=== PATIENT | female | born 1995 | race Caucasian/White ===

== ENCOUNTER 2017-12-05 17:33 | Emergency (ER) | payer OTHER ==
[~2017-12-05] VITALS: Ht 170.2 cm; Wt 89.0 kg
[2017-12-05 17:44] VITALS: TEMP 36.8; Ht 170.2 cm; Wt 89.0 kg
[2017-12-05] MEDS ORDERED: LORA-741 PO (18:45)
[2017-12-05] MEDS ORDERED: ESCI1TAB10 PO (18:45)
[2017-12-05] MEDS ORDERED: BCPILLS PO (18:45)
[2017-12-05 19:18] LABS: HEMATOCRIT 35.6 % (37-47); MEAN CELL VOLUME 85.8 fL (80-100); MEAN CORPUSCULAR HEMOGLOBIN 28.9 pg (25-34); MEAN CORPUSCULAR HGB CONC 33.7 g/dl (32-36); MEAN PLATELET VOLUME 10.1 fL (7.4-10.4); PLATELET COUNT 152 K/uL (130-400); RED CELL DISTRIBUTION WIDTH CV 13.2 % (11.5-14.5); RED CELL DISTRIBUTION WIDTH SD 41.5 fL (36.4-46.3); WHITE BLOOD COUNT 6.85 K/uL (4.8-10.8)
[2017-12-05 19:29] LABS: PTT PATIENT 22.9 SECONDS (21.0-31.0)
[2017-12-05 19:37] LABS: ALBUMIN 3.7 gm/dl (3.4-5.0); ALKALINE PHOSPHATASE 89 U/L (45-117); ALT/SGPT 40 U/L (12-78); AST/SGOT 36 U/L (15-37); BLOOD UREA NITROGEN 13 mg/dl (7-18); CALCIUM 8.7 mg/dl (8.5-10.1); CARBON DIOXIDE 22 mmol/L (21-32); CKMB < 1.0 ng/ml (0.5-3.6); CREATININE 0.77 mg/dl (0.60-1.20); GLUCOSE 74 mg/dl (70-99); POTASSIUM 3.4 mmol/L (3.5-5.1); SODIUM 141 mmol/L (136-145); TOTAL PROTEIN 7.3 gm/dl (6.4-8.2)
[2017-12-05] MEDS ORDERED: OPTIRAY 320 IV PRN (20:00)
--- NOTE | 2017-12-05 21:00 | DIAGNOSTIC IMAGING REPORT ---
CT ANGIOGRAPHY OF THE CHEST, PULMONARY EMBOLUS PROTOCOL CLINICAL HISTORY: Chest pain. COMPARISON STUDY: No previous studies for comparison. TECHNIQUE: Following IV administration of 91 mL of Optiray-320, helical axial images of the chest were obtained utilizing the pulmonary embolus protocol. Maximal intensity projections and sagittal and coronal reformats were viewed on an independent 3D workstation. IV contrast was administered without complication. A dose lowering technique was utilized adhering to the principles of ALARA. CT DOSE: 392.44 mGy.cm FINDINGS: No pulmonary emboli are identified. There is no evidence for thoracic aortic dissection. The size of the heart is normal. There is no pericardial effusion. No enlarged axillary, mediastinal or hilar lymph nodes are present. The central airways are patent. There is no consolidation to suggest pneumonia. Minimal subpleural opacities reflect atelectasis. No pneumothorax or pleural effusion is noted. Bony thorax is unremarkable. Spleen is partially imaged but likely mildly enlarged. IMPRESSION: 1. No pulmonary emboli identified. 2. No acute intrathoracic findings. 3. Suspected mild splenomegaly, partially imaged on this exam. Electronically signed by: Brendon Bucio M.D. 12/05/2017 8:59 PM Dictated Date/Time: 12/05/2017 8:53 PM
[2017-12-05] MEDS ORDERED: PRED20TA PO (21:44)
[2017-12-05] MEDS ORDERED: DEXAMETHASONE **PF** INJ 10 MG/ML VIAL IV ONE (21:45)
--- NOTE | 2017-12-05 21:46 | EMERGENCY ROOM VISIT NOTE ---
History First contact with patient: 17:59 Chief Complaint: CHEST PAIN Stated Complaint: RASH CHEST PAIN Nursing Triage Summary: Patient complains of rash and chest pain for a few days. History of Present Illness Patient is a generally healthy 22-year-old female who is referred to the emergency department from [facility] for evaluation of chest pain. Patient reports that she actually went to [facility] because she had developed a generalized hives to yesterday. Patient notes that she traveled to [facility] on a mission trip 10/31 through 11/16. While in [facility], she sustained some type of insect bite on her right thigh that had a slight bull's-eye appearance, which resolved shortly on its own without any pain or itching. Patient notes that when she returned from the trip she was feeling poorly, with cough and upper respiratory symptoms. She was treated by an urgent care facility at her home in [place] for bronchitis, using steroids and an unknown antibiotic. Her symptoms resolved, and she was feeling better, at which point she developed a "bad headache" with associated chills, sweats, photophobia and a sensation of being off balance. The patient does not have a diagnosis of migraine disorder, nor does she ever have headaches similar to this. She used [id number] Excedrin, and the headache went away after about 5 days. Yesterday, the patient states that she broke out in a rash. Her symptoms started yesterday afternoon. She noted lesions on her torso and her hands, and states that they were red, raised and very itchy. She has photographs off the rash that appear consistent with urticaria. She took Zyrtec and Benadryl, when she woke up this morning the hives on her torso had redness resolved, but now had lesions on her thighs. The hives are improving. Patient states that she went to [facility] because of the rash. While at [facility] upon further questioning, she admitted to a dry cough and left upper chest pain radiating to the left scapula and stiffness in the shoulder. [facility] did an EKG and a chest x-ray and referred her to the emergency department for further care and evaluation. Patient is on oral contraceptives. She did have prolonged travel earlier this summer to [facility]. She also does report that her mom has a history of "blood clots" she is not sure of the specific diagnosis or any type of underlying pathology. The patient does have some discomfort with taking a deep breath but she does not feel short of breath. She denies any calf or leg pain or swelling. With regards to the hives, she is unaware of any new exposures, including foods, personal grooming items, clothing or linens. Review of Systems Review of systems as per HPI. All other systems reviewed were negative. 10 systems reviewed. Past Medical/Surgical History Medical Problems: (1) Anxiety Surgical Problems: (1) History of tonsillectomy (2) History of wisdom tooth extraction Electronic medical records are reviewed and summarized as above/below. See Problem List. Social History Smoking Status: Never Smoker Alcohol Use: none Housing Status: lives with roommate Occupation Status: student Current/Historical Medications Scheduled Control Pills ( Control Pills), 1 TAB PO DAILY Escitalopram Oxalate (Lexapro), 20 MG PO DAILY Prednisone (Prednisone), 0 PO DAILY Scheduled PRN Lorazepam (Ativan), 0.5 MG PO Q6H PRN for Anxiety Physical Exam Vital Signs Date Time Temp Pulse Resp B/P (MAP) Pulse Ox O2 Delivery O2 Flow Rate FiO2 12/05/17 22:07 81 16 132/74 98 12/05/17 20:57 76 20 120/78 100 Room Air 12/05/17 20:11 80 16 125/64 98 Room Air 12/05/17 17:44 36.8 79 18 146/53 99 Room Air Physical Exam CONSTITUTIONAL: Patient is a well-appearing 22-year-old female who is awake and alert and in no acute distress. EYES: Pupils equal, round, reactive to light and accommodation. EOMs intact without nystagmus. Sclera are anicteric. ENT: Tympanic membranes intact, with normal landmarks. External canals are clear. Oral and nasopharynx are clear. Mucous membranes are moist, no lesions , tongue and gums appear normal. NECK: No bruits auscultated. Supple without lymphadenopathy. No thyromegaly. No meningeal signs. Full active range of motion without discomfort. CARDIOVASCULAR: Regular rate and rhythm, with normal S1 and S2, no murmur or gallop or rub is heard. No carotid bruits auscultated. No JVD. Peripheral pulses easy to palpable. RESPIRATORY: Breath sounds equal and clear to auscultation without wheezes, rales, or rhonchi heard. Full and equal chest expansion without accessory muscle use or retractions. MUSCULOSKELETAL: Full range of motion of extremities x 4 with good strength. No cyanosis, edema, joint tenderness or swelling. No deformity. Calves are soft and nontender bilaterally. No palpable cords. INTEGUMENTARY: Faint erythema noted in the dorsum of the hands over the MCP joints, and on the anterior thighs bilaterally. NEUROLOGICAL: Alert, oriented, and cooperative. Cranial nerves, sensation and strength grossly intact. Pupils round, equal, and react to light, EOMs are full. LYMPH: No lymphadenopathy. Medical Decision & Procedures ER Provider Diagnostic Interpretation: CT ANGIOGRAPHY OF THE CHEST, PULMONARY EMBOLUS PROTOCOL CLINICAL HISTORY: Chest pain. COMPARISON STUDY: No previous studies for comparison. TECHNIQUE: Following IV administration of 91 mL of Optiray-320, helical axial images of the chest were obtained utilizing the pulmonary embolus protocol. Maximal intensity projections and sagittal and coronal reformats were viewed on an independent 3D workstation. IV contrast was administered without complication. A dose lowering technique was utilized adhering to the principles of ALARA. CT DOSE: 392.44 mGy.cm FINDINGS: No pulmonary emboli are identified. There is no evidence for thoracic aortic dissection. The size of the heart is normal. There is no pericardial effusion. No enlarged axillary, mediastinal or hilar lymph nodes are present. The central airways are patent. There is no consolidation to suggest pneumonia. Minimal subpleural opacities reflect atelectasis. No pneumothorax or pleural effusion is noted. Bony thorax is unremarkable. Spleen is partially imaged but likely mildly enlarged. IMPRESSION: 1. No pulmonary emboli identified. 2. No acute intrathoracic findings. 3. Suspected mild splenomegaly, partially imaged on this exam. Laboratory Results 12/05/17 18:59 Red Blood Count 4.15, Mean Corpuscular Volume 85.8, Mean Corpuscular Hemoglobin 28.9, Mean Corpuscular Hemoglobin Concent 33.7, Mean Platelet Volume 10.1 12/05/17 18:59 Test 12/05/17 18:59 12/05/17 19:10 White Blood Count 6.85 K/uL (4.8-10.8) Red Blood Count 4.15 M/uL (4.2-5.4) Hemoglobin 12.0 g/dL (12.0-16.0) Hematocrit 35.6 % (37-47) Mean Corpuscular Volume 85.8 fL (80-100) Mean Corpuscular Hemoglobin 28.9 pg (25-34) Mean Corpuscular Hemoglobin Concent 33.7 g/dl (32-36) Platelet Count 152 K/uL (130-400) Mean Platelet Volume 10.1 fL (7.4-10.4) RDW Standard Deviation 41.5 fL (36.4-46.3) RDW Coefficient of Variation 13.2 % (11.5-14.5) Neutrophils % (Manual) 54.7 % Lymphocytes % (Manual) 38.3 % Monocytes % (Manual) 6.1 % Eosinophils % (Manual) 0.9 % Neutrophils # (Manual) 3.75 K/uL (1.4-6.5) Total Absolute Neutrophils 3.75 K/uL (1.4-6.5) Lymphocytes # (Manual) 2.62 K/uL (1.2-3.4) Total Absolute Lymphocytes 2.62 K/uL (1.2-3.4) Monocytes # (Manual) 0.42 K/uL (0.11-0.59) Eosinophils # (Manual) 0.06 K/uL (0-0.5) Red Blood Cell Morphology Unremarkable Erythrocyte Sedimentation Rate 2 mm/hr (0-21) Prothrombin Time 10.8 SECONDS (9.0-12.0) Prothromb Time International Ratio 1.0 (0.9-1.1) Activated Partial Thromboplast Time 22.9 SECONDS (21.0-31.0) Partial Thromboplastin Ratio 0.9 Anion Gap 10.0 mmol/L (3-11) Est Creatinine Clear Calc Drug Dose 133.5 ml/min Estimated GFR () 128.8 Estimated GFR (Non- 111.1 BUN/Creatinine Ratio 17.1 (10-20) Calcium Level 8.7 mg/dl (8.5-10.1) Total Bilirubin 0.5 mg/dl (0.2-1) Aspartate Amino Transf (AST/SGOT) 36 U/L (15-37) Alanine Aminotransferase (ALT/SGPT) 40 U/L (12-78) Alkaline Phosphatase 89 U/L (45-117) Total Creatine Kinase 74 U/L (26-192) Creatine Kinase MB < 1.0 ng/ml (0.5-3.6) Creatine Kinase MB Ratio (0-3.0) Troponin I < 0.015 ng/ml (0-0.045) Total Protein 7.3 gm/dl (6.4-8.2) Albumin 3.7 gm/dl (3.4-5.0) Globulin 3.6 gm/dl (2.5-4.0) Albumin/Globulin Ratio 1.0 (0.9-2) Lyme Disease IgG Antibody NEG (NEG) Lyme Disease IgM Antibody NEG (NEG) Urine Test NEG (NEG) Medications Administered Medications (Trade) Dose Ordered Sig/Gomez Route Start Time Stop Time Status Last Admin Dose Admin Dexamethasone Sodium Phosphate (Dexamethasone Inj Pf) 10 mg NOW ONCE IV 12/05/17 21:45 12/05/17 21:46 DC 12/05/17 21:45 10 MG ECG Per My Interpretation Indication: chest pain Rate (beats per minute): 69 Rhythm: normal sinus Findings: no acute ischemic change, no ectopy Comparison ECG Date: no prior available ED Course The patient was seen and evaluated as above. Her primary concern was the episode of hives that she developed yesterday without clear source. At the present time, she has some faint erythema where the hives had been most recently , otherwise is asymptomatic from a dermatologic standpoint. She was referred to the emergency department from [facility] because she was experiencing some chest pain. She has also had some recent travel is on an oral contraceptive and there is a family history of DVT. There is also a concern regarding possible Lyme due to a bite on her leg. The patient's paperwork from [facility] [facility] was reviewed including her EKG. She was slightly tachycardic upon initial presentation at [facility], heart rate is normal here. Chest x-ray with radiology interpretation was unremarkable. ED workup was discussed with the patient. I did discuss my concern for possible pulmonary embolus with the patient, and she was agreeable to undergo proposed workup. IV lock was initiated and laboratory studies were collected. EKG was performed and was as noted above. She was placed on a phototypesetting equipment monitor. Urine dip was obtained and was clear. test was negative. CBC with differential, cardiac enzymes, CMP, sed rate, coags and Lyme screen were all drawn. Chest x-ray was not repeated at his it had been done earlier today. Laboratory studies demonstrated a normal white count at 6800, no left shift or bandemia. H&H is normal. Sed rate is not elevated. Coags are unremarkable. Electrolytes without correctable abnormality. Renal functions are normal. Transaminases are unremarkable. Cardiac enzymes are negative 1 with symptoms greater than 24 hours. Lyme screen was negative. The patient's mother did present to the emergency department and was able to provide some additional history. She suffered a DVT when she was 19 years old on and oral contraceptive and a heavy smoker. She had no further clots once going off of the control pills, and did have a hypercoagulability workup prior to undergoing a hysterectomy which was reportedly normal. Nonetheless, given the patient's pleuritic left chest pain radiating to the scapular region with associated travel and oral contraceptive use, I did suggest performing chest CT to exclude PE and they were in agreement. Chest CT was unremarkable, with no evidence for pulmonary embolism or acute thoracic findings. All laboratory and diagnostic imaging studies were reviewed with the patient and her mother at length. She appears to be cleared from a cardiac standpoint. Her pain may be musculoskeletal or possibly a little anxiety related. With regards to her hives, she did not have any significant rebound or reoccurrence here in the emergency department during the several hours that she was observed. She was given a dose of IV Decadron. She was encouraged to continue Benadryl, can add Zantac, and will be placed on a course of prednisone. She was advised to recheck closely with her primary care provider or with her student health services at [facility] particularly if her symptoms are not improving. Differential diagnosis includes myocarditis, pericarditis, pulmonary embolism, pneumonia, pneumothorax, asthma exacerbation, musculoskeletal, anxiety, costochondritis, among others. Medical Decision See emergency department course. Medication Reconcilliation Current Medication List: was personally reviewed by in Blood Pressure Screening Patient's blood pressure: Normal blood pressure Blood pressure disposition: Did not require urgent referral Impression Primary Impression: Left sided chest pain Additional Impression: Urticaria Departure Information Prescriptions Prednisone (Prednisone) 20 Mg Tab 0 PO DAILY, #18 TAB 3 DAILY FOR 3 DAYS, THEN 2 DAILY FOR 3 DAYS, THEN 1 DAILY FOR 3 DAYS. Prov: Cami Kirby PA 12/05/17 Referrals No Doctor, Assigned (PCP) Patient Instructions My [facility] Additional Instructions Prednisone 20mg: Once daily until the prescription is finished. It is best to take this earlier in the day as some patients note occasional difficulty falling asleep when taken in the late evening. Diphenhydramine(Benadryl) 25mg: use 25 to 50 mg as needed every six hours for swelling, itching, or hives. This medication is sedating and will cause drowsiness. Avoid alcohol, operating machinery or dangerous equipment, working on ladders or roofs, DRIVING, or situations where being under the influence may be dangerous. Zantac 75: Take two pills twice a day along with Benadryl as needed for swelling , itching, or hives. Most people know this for its affect on the stomach, but it also acts similar to, but less potent than Benadryl for allergic reactions. Both the Benadryl and the Zantac are available [id number]. Continue current medications. Avoid strenuous activities and anything that worsens your pain. Resume normal activities once your symptoms resolve. Return to the ER immediately for worsening or persistent chest pain, vomiting, fevers, difficulty breathing, worsening of your rash, swelling of your face, lips, tongue, or throat, difficulty breathing, vomiting, or as needed. Follow-up with your primary care physician in 2-3 days for a recheck of your current condition. Problem Qualifiers
[2017-12-05] MEDS ORDERED: DEXAMETHASONE SOD INJ 10 MG/ML VIAL ONE (21:55)
[2017-12-05 22:07] VITALS: BP 132/74; PULSE 81; O2SAT 98
== END 2017-12-05 22:08 | disposition home or self-care (01) ==
LOC: C.EDB 17:35
DX: R07.9 Chest pain, unspecified (principal); L50.9 Urticaria, unspecified; Z82.49 Family history of ischemic heart disease and other diseases of the circulatory system; F41.9 Anxiety disorder, unspecified; Z79.3 Long term (current) use of hormonal contraceptives; Z79.899 Other long term (current) drug therapy